=== PATIENT | female | born 1940 | race Caucasian/White ===

== ENCOUNTER 2016-09-09 09:48 | Emergency (ER) | payer MEDICARE, BC ==
[2016-09-09] MEDS ORDERED: IOPAMIDOL 370 (76%) 100 ML VIAL IV ONE (09:49)
[2016-09-09] MEDS ORDERED: MORPHINE SULFATE 4 MG/ML SYRINGE ONE (10:35)
[2016-09-09] MEDS ORDERED: PROCHLORPERAZINE 5 MG/ML 2 ML VIAL ONE (10:35)
[2016-09-09 10:45] LABS: BASO % 0.5 % (0.2-1.0); EOS % 0.6 % (0.9-2.9); HEMATOCRIT 46.7 % (37.0-47.0); HEMOGLOBIN 15.5 gm/l (12.0-16.0); IMM NEUT% 0.3 % (0-1); LYMPH # 0.9 (1.0-4.8); LYMPH % 13.7 % (15-45); MEAN CELL VOLUME 94.2 fl (81.0-99.0); MEAN CORPUSCULAR HEMOGLOBIN 31.3 pg (27.0-31.0); MEAN CORPUSCULAR HGB CONC 33.2 g/dl (33.0-37.0); MONO # 0.5 (0.0-0.8); MONO % 7.5 % (4-12); NEUT % 77.4 % (43-75); PLATELET COUNT 197 K/mm3 (130-400); RED CELL DISTRIBUTION WIDTH 12.6 % (11.5-14.5)
[2016-09-09 11:13] LABS: CALCIUM 9.3 mg/dL (8.6-10.3)
[2016-09-09] MEDS ORDERED: MORPHINE SULFATE 2 MG/ML SYRINGE ONE (11:28)
--- NOTE | 2016-09-09 12:24 | CT ---
HEAD CT WITHOUT CONTRAST HISTORY: Status post fall, loss of consciousness. No intravenous contrast administered. Contiguous axial images acquired from skull base to vertex. COMPARISON: 12/29/2012. BRAIN VOLUME:Grossly unremarkable for patient age. VENTRICULAR SIZE:No gross ventriculomegaly. FOCAL MASS EFFECT:None. ACUTE INTRACRANIAL HEMORRHAGE:None. BASAL GANGLIA: Hypoattenuation along the right thalamus, probable remote lacunar infarct, seen previously. CALVARIUM:Grossly intact. Findings suggest scalp injury at the posterior vertex. VISIBLE PARANASAL SINUSES AND MASTOID AIR CELLS:Grossly clear. IMPRESSION: Evidence of posterior scalp injury. No gross mass effect, depressed calvarial fracture, or acute intracranial hemorrhage. Results were electronically transmitted to the electronic medical record at 09/09/2016 at 1221 hours.
--- NOTE | 2016-09-09 12:29 | CT ---
CERVICAL SPINE CT WITHOUT CONTRAST HISTORY: Status post fall. No intravenous contrast administered contiguous axial images acquired from the posterior fossa to the upper T2 level. FINDINGS ALIGNMENT: Mild anterolisthesis at C3-4 with osseous bridging at the left C3-4 facet joint. COMPRESSION DEFORMITY: None. DISC SPACES: Severe narrowing at the C4-5 through C6-7 levels, moderate narrowing at C3-4. FRACTURE: No displaced fracture. DEGENERATIVE CHANGE: At C2-3, there is a central disc protrusion. At C3-4 there is disc suitable bulge and small central herniation. At C4-5 there is discussed by ridge formation. At C5-6 there is a left paracentral protrusion. Soft tissue contents of spinal canal are limited in evaluation below the C5 level due to shoulder artifact. There is facet degeneration most notable at the left C2-3 level. Probable minor retroareolar odontoid pannus formation. FORAMINAL NARROWING: Moderate foraminal narrowing at the right C3-4, bilateral C4-5, bilateral C5-6, and bilateral C6-7 levels.. PARASPINAL SOFT TISSUES: Mild atherosclerotic calcifications of the carotid bifurcations. Patent airway.. LUNG APICES: Grossly unremarkable within field of view. IMPRESSION: Findings of moderate to severe cervical spondylosis. No cervical spine fracture identified. Results were electronically transmitted to the electronic medical record at 09/09/2016 at 1225 hours.
--- NOTE | 2016-09-09 12:40 | CT ---
CHEST/ABDOMEN/PELVIS CT WITH CONTRAST HISTORY: Status post fall with loss of consciousness, left anterior rib pain. TECHNIQUE: Following the administration of 100 cc Isovue-370 intravenous contrast, contiguous axial images were acquired from the thoracic inlet to the ischial tuberosities. FINDINGS: CHEST THORACIC AORTA: Minor atherosclerotic calcification with normal caliber. No periaortic hematoma.. LUNGS: Minor atelectatic changes. No pleural effusion or pneumothorax.. 1.2 cm pleurally based lesion of the right lower lobe, image 75 MIKO AND MEDIASTINUM: No findings of mediastinal hematoma or enlarged lymph nodes. AXILLAE: No grossly enlarged lymph nodes. ABDOMEN AND PELVIS CT ABDOMEN AND PELVIS WITH CONTRAST SOLID ABDOMINAL ORGANS: Liver and spleen grossly intact. No focal mass effect of the pancreas. 0.2 cm nodule of the left adrenal gland. No focal renal lesions or collecting system dilatation. GALLBLADDER: Surgically absent. BOWEL: Moderate fecal loading. Limited assessment of the distal colon due to decompression. The appendix is not seen. PELVIC ORGANS: Status post hysterectomy, no adnexal mass effect. INGUINAL REGIONS AND ANTERIOR ABDOMINAL WALL: Small left inguinal fatty hernia. Small umbilical fatty hernia. FREE FLUID: No gross free fluid identified. ABDOMINOPELVIC LYMPH NODES: No abnormally enlarged lymph nodes identified. ABDOMINAL AORTA: Minor atherosclerotic calcifications, no aneurysmal dilatation. OSSEOUS STRUCTURES: Anterolisthesis at L4-5 appears to relate to prominent facet degeneration at this level. No vertebral compression deformity. 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 There is subtle cortical irregularity of the left fourth rib raising suspicion for nondisplaced fracture. IMPRESSION: CHEST: 1. No pneumothorax, hemothorax, or mediastinal hematoma. 2. Findings suspicious for nondisplaced left fourth rib fracture anteriorly. 3. Recommend follow-up 3 month assessment for 1.2 cm pleurally based lesion of the right lower lobe. ABDOMEN AND PELVIS: 1. No free fluid or evidence of solid organ injury. 2. Status post cholecystectomy and hysterectomy. 3. Recommend follow-up assessment for 1.2 cm left adrenal nodule. 4. Severe spinal canal stenosis at L4-5 level related to facet degeneration and anterolisthesis. 5. Small umbilical and left inguinal fatty hernias. Results were electronically transmitted to the electronic medical record at 09/09/2016 at 1236 hours.
[2016-09-09 13:26] LABS: URINE BILIRUBIN NEGATIVE (NEGATIVE); URINE BLOOD TRACE (NEGATIVE); URINE GLUCOSE (UA) NEGATIVE (NEGATIVE); URINE LEUKOCYTE ESTERASE TRACE (NEGATIVE); URINE NITRITE NEGATIVE (NEGATIVE); URINE PROTEIN 1+ (NEGATIVE); URINE UROBILINOGEN NORMAL (0-1 mg/dl)
[2016-09-09 13:29] LABS: URINE APPEARANCE CLEAR; URINE COLOR YELLOW
[2016-09-09 13:38] LABS: URINE BACTERIA 1+
== END 2016-09-09 14:12 | disposition home or self-care (01) ==
LOC: ED 09:48
DX: R55 Syncope and collapse (principal); S22.32XA Fracture of one rib, left side, initial encounter for closed fracture; Z87.891 Personal history of nicotine dependence; W18.30XA Fall on same level, unspecified, initial encounter; Y93.G9 Activity, other involving cooking and grilling; Y92.000 Kitchen of unspecified non-institutional (private) residence as the place of occurrence of the external cause
CPT/HCPCS: 85025; 87086; 80048; 81001; 74177; 72125; 70450; 71260; 94010; 96375; 99284 ×2; 96374; 93005; J0780; J2270 ×2; Q9967